=== PATIENT | male | born 1950 | race Caucasian/White ===

== ENCOUNTER 2016-05-25 06:20 | Inpatient (IN) | payer OTHER ==
[~2016-05-25] VITALS: Ht 177.8 cm; Wt 109.8 kg
[~2016-05-25 06:20] MED LIST: BACT2OIN EX; ENAL10TA7 PO; FISH1000 PO; GLUC750T22 PO; METF-324 OR; MULT-65 PO; NAPR500 PO; TAMS0.4C67 PO
[2016-05-25 07:00] VITALS: BP 142/75; PULSE 58; RESP 18; TEMP 97; O2SAT 97
[2016-05-25] MEDS ORDERED: NITR0.4S SL (07:12)
[2016-05-25] MEDS ORDERED: TAMS0.4C4 PO (07:12)
[2016-05-25] MEDS ORDERED: IPRA17I INH (07:12)
[2016-05-25] MEDS ORDERED: GLUC100017 PO (07:12)
[2016-05-25] MEDS ORDERED: METO50TA PO (07:12)
[2016-05-25] MEDS ORDERED: LORA10TA PO (07:12)
[2016-05-25] MEDS ORDERED: GLIM1TAB PO (07:12)
[2016-05-25] MEDS ORDERED: NAPR500T PO (07:12)
[2016-05-25] MEDS ORDERED: MULT-135 PO (07:12)
[2016-05-25] MEDS ORDERED: ENAL10TA PO (07:12)
[2016-05-25] MEDS ORDERED: METF1000 PO (07:12)
[2016-05-25] MEDS ORDERED: OMEGCAP PO (07:12)
[2016-05-25] MEDS ORDERED: HEPARIN-NS/PF INJ 500 ML ONE (08:12)
[2016-05-25] MEDS ORDERED: MIDAZOLAM HCL 2 MG/2 ML VIAL ONE (08:13)
[2016-05-25] MEDS ORDERED: SODIUM CHLOR 0.9% 1000 ML INJ 1,000 ML IV SCH (08:46)
[2016-05-25] MEDS ORDERED: BACITRACIN OINT 0.9 GM PKT TOP ONE (09:00)
[2016-05-25] MEDS ORDERED: SODIUM CHLOR 0.9% 250 ML INJ 250 ML IV PRN (09:00)
[2016-05-25] MEDS ORDERED: LORazepam 2 MG/ML VIAL IV PRN (09:00)
[2016-05-25] MEDS ORDERED: LIDOCAINE HCL 1% 50 ML VIAL INFIL PRN (09:00)
[2016-05-25] MEDS ORDERED: METOCLOPRAMIDE HCL 10 MG/2 ML VIAL IV PRN (09:00)
[2016-05-25] MEDS ORDERED: SODIUM CHLORIDE 0.9% FLUSH 5 ML FLUSH IVF SCH (09:00)
[2016-05-25] MEDS ORDERED: MISC INFORMATION XX ONE (09:00)
[2016-05-25] MEDS ORDERED: ONDANSETRON HCL 4 MG/2 ML VIAL IV PRN (09:00)
[2016-05-25] MEDS ORDERED: SODIUM CHLORIDE 0.9% FLUSH 5 ML FLUSH IVF PRN (09:00)
[2016-05-25] MEDS ORDERED: ATROPINE SULFATE 1 MG/ML VIAL IV PRN (09:00)
[2016-05-25] MEDS: SODIUM CHLOR 0.9% 1000 ML INJ 1,000 ML IV SCH (10:28)
[2016-05-25] MEDS ORDERED: INSULIN REGULAR (IV INFUSION) 100 UNITS in SODIUM CHLORIDE 0.9% INJ 100 ML IV SCH (10:30)
[2016-05-25] MEDS ORDERED: IPRATROPIUM BROMIDE 17 MCG/ACT 12.9 GM INHALER INH PRN (10:30)
[2016-05-25] MEDS ORDERED: METOPROLOL TARTRATE 25 MG TAB PO SCH (10:30)
[2016-05-25] MEDS ORDERED: NALOXONE HCL 0.4 MG/ML AMP IV PRN (10:30)
[2016-05-25] MEDS ORDERED: ACETAMINOPHEN 325 MG TAB PO PRN (10:30)
[2016-05-25] MEDS ORDERED: ceFAZolin 2 GM PREMIX 50 ML IV SCH (10:30)
[2016-05-25] MEDS ORDERED: CHLORHEXIDINE GLUCONATE 4% SOLN 120 ML BTL TOPICAL SCH (10:30)
[2016-05-25] MEDS ORDERED: SODIUM CHLORIDE 0.9% FLUSH 5 ML FLUSH FLUSH PRN (10:30)
[2016-05-25] MEDS ORDERED: PANTOPRAZOLE SOD 40 MG DELAYED RELEASE TAB PO ONE (10:30)
[2016-05-25] MEDS ORDERED: CEFAZOLIN INJ 500 MG in SODIUM CHLORIDE 0.9% IRR BTL 500 ML IRRIGATION SCH (10:30)
[2016-05-25] MEDS ORDERED: PAPAVERINE INJ 60 MG, NITROGLYCERIN INJ 100 MCG, DILTIAZEM INJ 100 MG in SODIUM CHLORID... IRRIGATION SCH (10:30)
[2016-05-25] MEDS ORDERED: ONDANSETRON HCL 4 MG/2 ML VIAL IVP PRN (10:30)
[2016-05-25] MEDS ORDERED: SODIUM CHLORIDE 0.9% FLUSH 5 ML FLUSH IV FLUSH PRN (10:30)
[2016-05-25] MEDS ORDERED: IOHEXOL 350 MG/ML 100 ML BTL (for Cath Lab) OTHER ONE (10:35)
--- NOTE | 2016-05-25 11:28 | RADRPT ---
EXAM DATE/TIME: 05/25/2016 10:39 [facility] COMPARISON: No previous studies available for comparison. INDICATIONS : Evaluate for pneumothorax, pneumonia or communicable disease. Pre op for cabg tomorrow MEDICAL HISTORY : None. SURGICAL HISTORY : None. ENCOUNTER: Initial ACUITY: 1 day PAIN SCORE: 0/10 LOCATION: Bilateral chest FINDINGS: A single view of the chest demonstrates the lungs to be symmetrically aerated without evidence of mas s, infiltrate or effusion. The cardiomediastinal contours are unremarkable. Osseous structures are intact. CONCLUSION: No acute disease. Ryan Hayward MD FACR on May 25, 2016 at 11:26 Board Certified Radiologist. This report was verified electronically.
--- NOTE | 2016-05-25 11:32 | MA ---
cc: DWAINE ZARATE MD DATE 05/25/2016 PROCEDURE Cardiac catheterization. PROCEDURAL NOTE The patient was prepped and draped in the usual fashion. A 6 sheath was inserted percutaneously into the right femoral artery. Coronary angiography was done with Jeramie preformed catheters. Left ventriculography was done with a pigtail catheter. RESULTS Aortic pressure was 104/55. Left ventricular end-diastolic pressure was 10. There is no gradient across the aortic valve. CORONARY ARTERIOGRAPHY The left main coronary was normal. The left anterior descending artery demonstrated a 90% stenosis in its proximal portion. The artery was then somewhat diffusely diseased over a fairly long segment compromising 2-3 cm with a second 90% stenosis just after the takeoff of the first diagonal. The distal portion of the artery appeared to be somewhat diffusely diseased but patent. The left circumflex artery arose from the left main. A large obtuse marginal branch was given off with a 75% stenosis in the proximal portion, followed by a second 90% stenosis. The distal portion of the circumflex was widely patent. The left circumflex artery descended in the AV groove and was essentially normal. The right coronary was totally occluded in its midportion. Collateralization from both the LAD and circumflex provided a circulation to the distal right coronary. LEFT VENTRICULOGRAPHY The left ventricle was normal in size. There was mild anterior wall hypokinesis with overall estimated ejection fraction of 55%. No mitral regurgitation was present. Aortic outflow tract appeared normal. CONCLUSIONS The patient demonstrates rather significant three-vessel coronary disease as described above. He would be appear to be a candidate for bypass grafting to the distal circumflex, LAD and right coronary arteries. MD KASSIE Maher/JUAN JOSÉ /8:46 AM /11:25 AM
--- NOTE | 2016-05-25 12:30 | RADRPT ---
EXAM DATE/TIME: 05/25/2016 11:44 [facility] COMPARISON: No previous studies available for comparison. INDICATIONS : Pre-op CABG. MEDICAL HISTORY : Hypertension. Nephrolithiasis. Arthritis. Prostate cancer. SURGICAL HISTORY : Sinus surgery. Kidney stone removal. Rotator cuff repair. ENCOUNTER: Initial ACUITY: 1 day PAIN SCORE: 0/10 LOCATION: Bilateral neck PEAK SYSTOLIC VELOCITIES (cm/sec): ICA/CCA RATIO: Right: 1.5 Left: 0.6 ICA: Right: 89 Left: 66 CCA: Right: 61 Left: 116 ECA: Right: 111 Left: 114 VERTEBRAL: Right: 54 antegrade Left: 35 antegrade Elevated flow velocities and ICA/CCA ratios have been found to correlate with increased degrees of vessel stenosis, calculated as percentage of diameter relative to a normal segment of distal ICA/CCA FINDINGS: RIGHT CAROTID: No significant stenosis is visualized. The waveforms are within normal limits. Minimal calcific plaq uing nonstenotic right internal carotid and mild soft plaquing in the bulb LEFT CAROTID: No significant stenosis is visualized. The waveforms are within normal limits. Mild soft plaquing of the bulb VERTEBRAL ARTERIES: Antegrade flow is seen in both vertebral arteries. MISCELLANEOUS: None. CONCLUSION: Mild atherosclerotic plaquing as described. No evidence of anatomic or physiologic stenosis Jose Juan Whitfield MD on May 25, 2016 at 12:27 Board Certified Radiologist. This report was verified electronically.
--- NOTE | 2016-05-25 12:33 | RADRPT ---
EXAM DATE/TIME: 05/25/2016 11:10 [facility] COMPARISON: No previous studies available for comparison. INDICATIONS : Pre-op CABG. MEDICAL HISTORY : Hypertension. Nephrolithiasis. Arthritis. Prostate cancer. SURGICAL HISTORY : Sinus surgery. Kidney stone removal. Rotator cuff repair. ENCOUNTER: Initial ACUITY: 1 day PAIN SCORE: 0/10 LOCATION: Bilateral legs. TECHNIQUE: Venous ultrasound of the left and right leg was performed from the inguinal ligament to the proximal calf. Real-time, color Doppler and spectral tracing, compression and augmentation techniques were us ed. FINDINGS: RIGHT LEG: There is normal compressibility of the deep venous system from the inguinal region to the proximal ca lf. No echogenic clot is seen in the lumen of the common femoral, femoral, popliteal, and posterior tibial veins. There is a normal response of the venous system to proximal and distal augmentation an d respiration. Iliac vein patent LEFT LEG: There is normal compressibility of the deep venous system from the inguinal region to the proximal ca lf. No echogenic clot is seen in the lumen of the common femoral, femoral, popliteal, and posterior tibial veins. There is a normal response of the venous system to proximal and distal augmentation an d respiration. Iliac vein patent CONCLUSION: Normal examination. No evidence of DVT Jose Juan Whitfield MD on May 25, 2016 at 12:31 Board Certified Radiologist. This report was verified electronically.
[2016-05-25 13:54] LABS: BLOOD, URINE NEG (NEG); GLUCOSE,URINE NEG (NEG); KETONE, URINE NEG (NEG); MUCUS URINE FEW /lpf (OCC); NITRITE,URINE NEG (NEG); URINE COLOR LIGHT-YELLOW (YELLW/STRAW)
[2016-05-25 13:55] LABS: COMMENT (UR) CULT NOT INDICATED; CULTURE IF INDICATED CULT NOT INDICATED
--- NOTE | 2016-05-25 14:41 | MH ---
cc: DILCIA LOJA DATE OF ADMISSION: 05/25/2016 1950 HISTORY OF PRESENT ILLNESS A patient of Dr. Guillaume Diana and Dr. Samuel Michaels. Apparently has been complaining of exertional chest tightness for the last month, noticed also with some belching, some shortness of breath, no diaphoresis, no nausea, vomiting. He has had this going off and on for the past month. He had an abnormal stress test which showed evidence for ischemia. He underwent cardiac cath today by Dr. Guillaume Diana which showed an EF of 55%, 0% stenosis in the left main, the LAD had proximal LAD stenosis of 90%, the mid distal LAD 90%, the OM 90%, the RCA was 100% occluded. The patient's risk factors include age, hypertension, tobacco use. PAST MEDICAL HISTORY 1. Degenerative disk disease. 2. Diabetes mellitus on oral medications. 3. Chronic low back pain. 4. Obesity with a BMI of 33. 5. Osteoarthritis of the shoulder, the right hand. 6. History of a right bundle branch block. 7. Sleep apnea. PAST SURGICAL HISTORY 1. Right rotator cuff surgery. 2. Right shoulder arthroscopy. 3. History of sinus surgery. ALLERGIES NEOSPORIN. MEDICATIONS Home medications include: 1. Enalapril 10 p.o. daily. 2. Fish oil. 3. Glimepiride 1 mg p.o. daily. 4. Glucosamine. 5. Loratadine 10 mg p.r.n. for allergies. 6. Naproxen. 7. Flomax 0.4 b.i.d. 8. Atrovent inhaler q.6 hours p.r.n. for shortness of breath. 9. Metoprolol 50 b.i.d. 10. Metformin 1000 b.i.d. FAMILY HISTORY Diabetes, CVA. SOCIAL HISTORY The patient is . Rare alcohol. Smokes a pipe and/or cigar. REVIEW OF SYSTEMS GENERAL: No night sweats, fever, heat and cold intolerance. SKIN: No psoriasis, itching or hives. HEENT: No blurred vision, hearing loss. RESPIRATORY: Positive for shortness of breath. CARDIOVASCULAR: As above in the HPI. GASTROINTESTINAL: No diarrhea, vomiting. GENITOURINARY: No burning, frequency, urgency. FINANCIAL WELLNESS COACH: No history of TIA, CVA, seizure disorder. ENDOCRINOLOGY: Positive for diabetes. PHYSICAL EXAMINATION VITAL SIGNS: Blood pressure 140/70, heart rate of 58, afebrile. GENERAL: Patient is awake, alert, in no acute distress. HEENT: Head is normocephalic, atraumatic. Pupils equal and reactive. Oral mucosa pink, moist. NECK: Supple. No JVD. HEART: Heart sounds S1-S2, regular rate and rhythm. No rubs, murmurs, gallops. LUNGS: Clear to auscultation. No wheezes, rales or rhonchi. ABDOMEN: Abdomen is obese, soft, nontender. No masses or organomegaly. EXTREMITIES: No cyanosis, clubbing or edema. LABORATORY DATA Lab work shows hemoglobin of 12, hematocrit 37, white cell count 5.4, platelet count 223, INR 1.1. Creatinine of 1.3. IMPRESSION This is a 65-year-old male with multiple cardiac risk factors with recent angina and positive stress test, underwent heart catheterization showing multivessel disease. Plan is for coronary artery bypass grafting. Films have been reviewed by Dr. Dilcia Loja. Procedures, alternatives and risks have been discussed with the patient. Plan will be for surgery in the a.m. Will have the educator talk with the patient and the family. He is to hold his enalapril and his metformin. He is to be started on some antacid 50 overnight and surgery will include bypass grafting to the LAD, the OM, possibly the RCA. The patient is agreeable to proceed, will plan for the morning. Dictated by: LOKESH Gerardo-Sandi MD WIL Mujica/JAZ /1:53 PM /2:40 PM
--- NOTE | 2016-05-25 15:22 | RADRPT ---
EXAM DATE/TIME: 05/25/2016 11:18 [facility] COMPARISON: No previous studies available for comparison. INDICATIONS : Pre-op CABG. MEDICAL HISTORY : Hypertension. Nephrolithiasis. Arthritis. Prostate cancer. SURGICAL HISTORY : Sinus surgery. Kidney stone removal. Rotator cuff repair. ENCOUNTER: Initial ACUITY: 1 day PAIN SCORE: 0/10 LOCATION: Bilateral legs. GREATER SAPHENOUS VEIN THIGH: PROXIMAL: Right 3 mm Left 4 mm MID: Right 4 mm Left 2 mm DISTAL: Right 4 mm Left 3 mm CALF: PROXIMAL: Right 3 mm Left 2 mm MID: Right 1 mm Left 2 mm DISTAL: Right 2 mm Left Non-visualized FINDINGS: The venous system of the lower extremities are patent by color Doppler imaging. Measurements of the leg veins (in mm) are listed above. CONCLUSION: Venous mapping as described above Ryan Hayward MD FACR on May 25, 2016 at 15:19 Board Certified Radiologist. This report was verified electronically.
--- NOTE | 2016-05-25 16:03 | PD.CAR.PN ---
CVT Progress Note Subjective/Hospital Course: sts data discussed with pt RISK SCORES About the STS Risk Calculator Procedure: CAB Only Risk of Mortality: 0.834% Morbidity or Mortality: 11.476% Long Length of Stay: 3.76% Short Length of Stay: 53.613% Permanent Stroke: 0.807% Prolonged Ventilation: 7.215% DSW Infection: 0.576% Renal Failure: 4.153% Reoperation: 3.913% Objective: Vital Signs Date Time Temp Pulse Resp B/P Pulse Ox O2 Delivery O2 Flow Rate FiO2 05/25/16 08:54 97 Room Air 05/25/16 07:00 97.0 58 18 142/75 97 Labs: Laboratory Tests Test 05/25/16 13:40 Urine Color LIGHT-YELLOW (YELLW/STRAW) Urine Turbidity CLEAR (CLEAR) Urine pH 5.0 (5.0-8.5) Urine Specific [place] 1.024 (1.002-1.035) Urine Protein NEG mg/dL (NEG-TRACE) Urine Glucose (UA) NEG mg/dL (NEG) Urine Ketones NEG mg/dL (NEG) Urine Occult Blood NEG (NEG) Urine Nitrite NEG (NEG) Urine Bilirubin NEG (NEG) Urine Urobilinogen LESS THAN 2.0 MG/DL (LESS THAN 2.0) Urine Leukocyte Esterase NEG (NEG) Urine RBC LESS THAN 1 /hpf (0-3) Urine WBC LESS THAN 1 /hpf (0-5) Urine Mucus FEW /lpf (OCC) Microscopic Urinalysis Comment CULT NOT INDICATED Consuelo Marina May 25, 2016 16:03
[2016-05-25 16:22] LABS: AUTOMATED NEUTROPHIL # 4.5 TH/MM3 (1.8-7.7); BASOPHIL % 0.4 % (0.0-2.0); EOSINOPHIL # 0.3 TH/MM3 (0-0.4); EOSINOPHIL % 3.6 % (0.0-4.0); HEMATOCRIT 39.2 % (39.0-51.0); HEMO FLAGS DIFF FINAL; LYMPH % 28.8 % (9.0-44.0); LYMPHOCYTE # 2.1 TH/MM3 (1.0-4.8); MEAN CELL VOLUME 91.1 FL (80.0-100.0); MEAN CORPUSCULAR HEMOGLOBIN 31.5 PG (27.0-34.0); MEAN CORPUSCULAR HGB CONC 34.6 % (32.0-36.0); MONO % 5.7 % (0.0-8.0); NEUT % 61.5 % (16.0-70.0); PLATELET COUNT 217 TH/MM3 (150-450); RED CELL DISTRIBUTION WIDTH 13.2 % (11.6-17.2); WHITE BLOOD COUNT 7.3 TH/MM3 (4.0-11.0)
[2016-05-25 16:27] LABS: PROTHROMBIN TIME - PATIENT 11.6 SEC (9.8-11.6)
[2016-05-25 16:42] LABS: ANION GAP 9 MEQ/L (5-15); BICARBONATE 26.9 MEQ/L (21.0-32.0); BLOOD UREA NITROGEN 17 MG/DL (7-18); CHLORIDE 105 MEQ/L (98-107); GLOMERULAR FILTRATION RATE 53 ML/MIN (>89); POTASSIUM 4.1 MEQ/L (3.5-5.1); SODIUM (NA) 141 MEQ/L (136-145)
--- NOTE | 2016-05-25 17:02 | EKG ---
Date Performed: 05/25/2016 Time Performed: 07:16:06 PTAGE: 65 years EKG: Sinus bradycardia Compared to prior tracing no significant change Normal ECG except for rat e PREVIOUS TRACING : 11/13/2005 08.12 DOCTOR: Luis Rod Interpretating Date/Time 05/25/2016 17:00:17
[2016-05-25 19:00] VITALS: PULSE 72
[2016-05-25 20:00] VITALS: BP 142/72; PULSE 71; PULSE 75; RESP 18; TEMP 98.4; O2SAT 96
[2016-05-25 21:00] VITALS: PULSE 73
[2016-05-25] MEDS ORDERED: SODIUM CHLORIDE 0.9% FLUSH 5 ML FLUSH IV FLUSH SCH (21:00)
[2016-05-25] MEDS ORDERED: SODIUM CHLORIDE 0.9% FLUSH 5 ML FLUSH FLUSH SCH (21:00)
[2016-05-25] MEDS: TAMSULOSIN HCL 0.4 MG CAP PO SCH (21:22)
[2016-05-25] MEDS: METOPROLOL TARTRATE 50 MG TAB PO SCH (21:22)
[2016-05-25] MEDS: DOCUSATE SODIUM 100 MG CAP PO SCH (21:23)
[2016-05-25 22:00] VITALS: PULSE 70
[2016-05-25 22:19] LABS: HEMOGLOBIN A1a 1.1 %; HEMOGLOBIN Ao 84.2 %; HEMOGLOBIN LA1C 2.1 %; HEMOGLOBIN P3 5.4 %
[2016-05-25 23:00] VITALS: PULSE 53
[2016-05-26] VITALS (19 sets, daily range): BP systolic 98–145; BP diastolic 54–75; PULSE 52–78; RESP 17–20; TEMP 88.4–98.6; O2SAT 94–98
[2016-05-26] MEDS ORDERED: MAGNESIUM SULFATE 1000 MG/2 ML VIAL (PED) IV ONE (05:00)
[2016-05-26] MEDS ORDERED: PHENYLEPHRINE HCL 10 MG/ML VIAL IV ONE (05:00)
[2016-05-26] MEDS ORDERED: ceFAZolin 2 GM PREMIX 50 ML IV ONE (05:00)
[2016-05-26] MEDS ORDERED: ARTIFICIAL TEARS OPTH OINT 3.5 APPLIC/3.5 GM TUBO ONE (05:00)
[2016-05-26] MEDS ORDERED: PROTAMINE SULFATE 250 MG/25 ML VIAL IV ONE ×2 (05:00→12:28)
[2016-05-26] MEDS ORDERED: FUROSEMIDE 100 MG/10 ML VIAL IV PUSH ONE (05:00)
[2016-05-26] MEDS ORDERED: HEPARIN SODIUM - SQ 10,000 UNITS/ML VIAL SQ ONE (05:00)
[2016-05-26] MEDS ORDERED: EPINEPHrine HCL (1:1000) 1 MG/ML VIAL IV ONE (05:00)
[2016-05-26] MEDS ORDERED: VECURONIUM BROMIDE 10 MG VIAL IV ONE (05:00)
[2016-05-26] MEDS ORDERED: DEXMEDETOMIDINE INJ 50 ML IV ONE (05:00)
[2016-05-26] MEDS ORDERED: AMIODARONE HCL 150 MG/3 ML VIAL IV ONE (05:00)
[2016-05-26] MEDS ORDERED: CALCIUM CHLORIDE 10% SOLN 1 GRAM/10 ML SYR IV ONE (05:00)
[2016-05-26] MEDS ORDERED: diphenhydrAMINE HCL 50 MG/ML VIAL IV ONE (05:00)
[2016-05-26] MEDS ORDERED: VASOPRESSIN INJ 20 UNITS/ML VIAL IV ONE (05:00)
[2016-05-26] MEDS ORDERED: NOREPINEPHRINE 4 MG/4 ML AMP IV ONE (05:00)
[2016-05-26] MEDS ORDERED: EPINEPHrine HCL (1:1000) 30 MG/30 ML VIAL OTHER ONE (05:00)
[2016-05-26] MEDS ORDERED: GLYCOPYRROLATE 0.2 MG/ML VIAL IV ONE (05:00)
[2016-05-26] MEDS: METOPROLOL TARTRATE 50 MG TAB PO SCH (05:59)
[2016-05-26] MEDS ORDERED: VANCOMYCIN HCL 1000 MG VIAL ONE (06:23)
[2016-05-26] MEDS ORDERED: methylPREDNISolone SOD SUCC 125 MG/2 ML VIAL ONE (06:24)
[2016-05-26] MEDS ORDERED: HEPARIN SODIUM - SQ 10,000 UNITS/ML VIAL ONE (06:24)
[2016-05-26] MEDS ORDERED: HEPARIN SODIUM - IV 10,000 UNITS/10 ML VIAL ONE ×2 (06:24→07:08)
[2016-05-26] MEDS: SODIUM CHLOR 0.9% 1000 ML INJ 1,000 ML IV SCH (06:28)
[2016-05-26] MEDS ORDERED: ALBUMIN HUMAN 25% 12.5 GM/50 ML BAGP IV ONE (07:06)
[2016-05-26] MEDS ORDERED: CARDIOPLEGIC IRR 1,000 ML ONE (07:06)
[2016-05-26] MEDS ORDERED: POTASSIUM CHLORIDE 20 MEQ/10 ML VIAL ONE ×2 (07:07→11:05)
[2016-05-26] MEDS ORDERED: CALCIUM CHLORIDE 10% SOLN 1 GRAM/10 ML SYR ONE (07:07)
[2016-05-26] MEDS ORDERED: MANNITOL INJ 50 ML ONE (07:09)
[2016-05-26] MEDS ORDERED: SODIUM BICARBONATE 8.4% INJ 50 ML ONE ×2 (07:09→12:04)
[2016-05-26] MEDS: TAMSULOSIN HCL 0.4 MG CAP PO SCH ×2 (09:00→20:31)
[2016-05-26] MEDS ORDERED: INFLUENZA VIRUS VACCINE (QUADRIVALENT) 0.5 ML SYR IM ONE (10:00)
[2016-05-26] MEDS: DOCUSATE SODIUM 100 MG CAP PO SCH ×2 (10:30→22:30)
[2016-05-26] MEDS ORDERED: LACTATED RINGER'S 1000 ML INJ 500 ML IV PRN (11:07)
[2016-05-26] MEDS ORDERED: Post-op Orders (for Pharmacy) MISC OTHER ONE (11:15)
[2016-05-26] MEDS ORDERED: ACETAMINOPHEN 325 MG TAB PO PRN (11:15)
[2016-05-26] MEDS ORDERED: SODIUM CHLORIDE 0.9% FLUSH 5 ML FLUSH IV FLUSH PRN (11:15)
[2016-05-26] MEDS ORDERED: DEXTROSE 50% IN WATER 50 ML VIAL(D50) IV PUSH PRN (11:15)
[2016-05-26] MEDS ORDERED: ONDANSETRON HCL 4 MG/2 ML VIAL IV PUSH PRN (11:15)
[2016-05-26] MEDS ORDERED: EPINEPHrine (1:1000) INJ 4 MG in DEXTROSE 5% IN WATER INJ 246 ML IV SCH ×2 (11:15)
[2016-05-26] MEDS ORDERED: CALCIUM CHLORIDE 10% 1 GRAM/10 ML VIAL IV PRN (11:15)
[2016-05-26] MEDS ORDERED: POTASSIUM CHLOR 20 MEQ PREMIX 100 ML IV PRN ×3 (11:15)
[2016-05-26] MEDS ORDERED: hydrALAZINE HCL 20 MG/ML VIAL IV PRN (11:15)
[2016-05-26] MEDS ORDERED: MAGNESIUM SULFATE INJ 2 GM in SODIUM CHLORIDE 0.9% INJ 100 ML IV PRN ×4 (11:15)
[2016-05-26] MEDS ORDERED: NOREPINEPHRINE-DEXTROSE DRIP 250 ML IV SCH (11:15)
[2016-05-26] MEDS ORDERED: CALCIUM CHLORIDE INJ 1 GM in SODIUM CHLORIDE 0.9% INJ 100 ML IV PRN (11:15)
[2016-05-26] MEDS ORDERED: ACETAMINOPHEN 650 MG SUPP RECTAL PRN (11:15)
[2016-05-26] MEDS ORDERED: POTASSIUM CHLORIDE 20 MEQ CONTROLLED RELEASE TAB PO PRN ×2 (11:15)
--- NOTE | 2016-05-26 11:22 | PD.OP ---
cc: Dilcia Loja MD; Guillaume Diana MD, [facility] Operative Report Date of Surgery: May 26, 2016 Preoperative Diagnosis: (1) Unstable angina (2) CAD (coronary artery disease) Postoperative Diagnosis: same Procedure: CABG x 3 MCKENZIE to LAD - good SVG to PDA - fair SVG to OM - good EVH Anesthesia: Dr. Denson Surgeon: Dilcia Loja Process Artist(s): Ron Pena Operation and Findings: The risks, benefits, complications, treatment options, and expected outcomes were discussed with the patient. The possibilities of reaction to medication, pulmonary aspiration, perforation of viscus, bleeding, recurrent infection, the need for additional procedures, failure to diagnose a condition, and creating a complication requiring transfusion or operation were discussed with the patient. The patient concurred with the proposed plan, giving informed consent. The site of surgery properly noted/marked. The patient was taken to Operating Room, identified as True Kauff[facility] and the procedure verified as CABG, EVH, PACO. A Time Out was held and the above information confirmed. Standard monitoring lines and Ibarra catheter were placed. General anesthesia was induced. The patient was prepped and draped in a sterile fashion. A median sternotomy was performed and electrocautery was used to obtain hemostasis. The left internal mammary artery was procured as a pedicle from the 7th rib to the 1st rib in the usual manner. Simultaneously left greater saphenous vein was procured from the left leg using a minimally invasive endoscopic technique. The vein was prepared for anastomosis and the leg wound was irrigated and closed in 2 layers. The pericardium was opened and a pericardial sling was created using interrupted 0 silk sutures. The patient was heparinized for cardiopulmonary bypass and the distal mammary pedicle was instrumented for anastomosis. The heart was instrumented for cardiopulmonary bypass in the usual manner. Antegrade blood cardioplegia was employed. The patient was placed on cardiopulmonary bypass. An aortic cross-clamp was applied and the heart was arrested using cold blood cardioplegia. Antegrade cardioplegia was administered after he each anastomosis. After adequate arrest, the distal right coronary circulation was investigated and the PDA was opened with a [place] blade and found to be a 1 millimeter fair target with diffuse disease. Saphenous vein was approximated to the PDA artery using a running 7 0 Prolene suture. The graft was measured for length and orientation and the proximal anastomosis was constructed to the ascending aorta using a running 5 0 Prolene suture after creating an aortotomy with a 5 millimeter punch. The 1st circumflex marginal artery was then opened with a [place] blade and found to be a 1.5 millimeter good target. Saphenous vein was approximated to the OM1 artery using a running 7 0 Prolene suture. The graft was measured for length and orientation and was suspended from the pericardium. The distal LAD was opened with a [place] blade and found to be a 1.5 millimeter good target. The left internal mammary artery was approximated to the LAD using a running 7 0 Prolene suture. The pedicle was attached to the epicardium using interrupted 5 0 silk suture. The patient was systemically rewarmed and received a hotshot dose of warm blood cardioplegia. The aorta was vented and the proximal anastomosis to the OM1 graft was accomplished using a running 5 0 Prolene suture after creating an aortotomy was a 5 millimeter punch. The cross -clamp was removed and all proximal and distal anastomoses were examined for hemostasis. Temporary atrial and ventricular pacing wires were positioned and brought out through the skin in the usual manner. The patient was paced at 80 beats per minute and weaned from cardiopulmonary bypass. Protamine was given. There was no adverse reaction. Decannulation was carried out without incident. Wound was checked for hemostasis which was obtained using electrocautery. A 36 [place] mediastinal and 32 [place] left pleural chest was were placed and secured to the skin with 0 silk suture. The sternum was closed with stainless steel wire. The fascia was closed with 1. PDS. The subcutaneous tissue was closed using a running 2-0 Vicryl suture. The skin was closed with 4-0 Monocryl. Sterile dressings were placed. At the end of the operation, all sponge, instruments, and needle counts were correct. The patient was transferred to the CICU in stable condition. Findings: Diffuse CAD in PDA. Improved ventricular function after revascularization. XC: 49 min CPB: 72 min Drains: mediastinal x 1 pleural x 1 Complications: none Disposition: to CVICU in stable condition Condition: stable Pacing Wires: 2 atrial and 2 ventricular Dilcia Loja MD May 26, 2016 11:22
[2016-05-26] MEDS: ACETAMINOPHEN 1000 MG/100 ML VIAL IV SCH ×2 (12:00→17:56)
[2016-05-26] MEDS ORDERED: MIDAZOLAM HCL 5 MG/5 ML VIAL ONE (12:05)
[2016-05-26] MEDS ORDERED: fentaNYL CITRATE 1000 MCG/20 ML VIAL ONE (12:06)
[2016-05-26] MEDS ORDERED: SODIUM CHLOR 0.9% IV ONE (12:28)
[2016-05-26] MEDS ORDERED: NORMOSOL R INJ 2,000 ML IV ONE (12:28)
[2016-05-26] MEDS ORDERED: SODIUM CHLORID 0.9% 500 ML INJ 1,000 ML IV ONE (12:28)
[2016-05-26] MEDS ORDERED: LACTATED RINGER'S 1000 ML INJ 3,000 ML IV ONE (12:28)
[2016-05-26] MEDS ORDERED: SODIUM CHLORIDE 0.9% INJ 200 ML IV ONE (12:28)
[2016-05-26] MEDS ORDERED: SODIUM BICARBONATE 8.4% SOLN 50 MEQ/50 ML VIAL IV ONE (13:00)
[2016-05-26] MEDS ORDERED: INSULIN REGULAR (IV INFUSION) 100 UNITS in SODIUM CHLORIDE 0.9% INJ 99 ML IV SCH (13:00)
--- NOTE | 2016-05-26 13:35 | RADRPT ---
EXAM DATE/TIME: 05/26/2016 12:31 [facility] COMPARISON: CHEST SINGLE AP, May 25, 2016, 10:39. INDICATIONS : Post CABG. MEDICAL HISTORY : Hypertension. Nephrolithiasis. Arthritis. Prostate cancer. SURGICAL HISTORY : CABG. Sinus surgery. Kidney stone removal. Rotator cuff repair. ENCOUNTER: Initial ACUITY: 1 day PAIN SCORE: Non-responsive. LOCATION: chest FINDINGS: Relative to prior examination there has been an interim median sternotomy cardiac surgery with an ET tube terminating above the placido and nasogastric tube to the midline of the stomach as well as a rig ht uterine catheter terminating in the superior vena cava at the right atrial junction. Left chest tu be is in place and there is no evidence of pneumothorax the lung pires are clear. CONCLUSION: Satisfactory post median sternotomy and cardiac surgery. Jose Juan Whitfield MD on May 26, 2016 at 13:33 Board Certified Radiologist. This report was verified electronically.
[2016-05-26] MEDS: AMIODARONE 200 MG TAB PO SCH ×2 (14:00→20:32)
[2016-05-26] MEDS: ceFAZolin 2 GM PREMIX 50 ML IV SCH (15:24)
[2016-05-26] MEDS: ATORVASTATIN 40 MG TAB PO SCH (20:31)
[2016-05-26] MEDS: SODIUM CHLORIDE 0.9% FLUSH 5 ML FLUSH IV FLUSH SCH (20:32)
[2016-05-26] MEDS: METOPROLOL TARTRATE 5 MG/5 ML VIAL IV PUSH PRN (20:32)
[2016-05-27] VITALS (16 sets, daily range): BP systolic 108–135; BP diastolic 55–74; PULSE 65–81; RESP 16–20; TEMP 98–98.9; O2SAT 92–98
[2016-05-27] MEDS: ceFAZolin 2 GM PREMIX 50 ML IV SCH ×3 (01:13→16:34)
[2016-05-27] MEDS: ACETAMINOPHEN 1000 MG/100 ML VIAL IV SCH ×2 (01:13→05:50)
[2016-05-27] MEDS: METOPROLOL TARTRATE 5 MG/5 ML VIAL IV PUSH PRN (01:26)
[2016-05-27] MEDS: SODIUM CHLOR 0.9% 1000 ML INJ 1,000 ML IV SCH ×2 (02:28→22:28)
--- NOTE | 2016-05-27 05:24 | RADRPT ---
EXAM DATE/TIME: 05/27/2016 04:24 [facility] COMPARISON: CHEST SINGLE AP, May 26, 2016, 12:31. INDICATIONS : Status post CABG. MEDICAL HISTORY : Hypertension. Arthritis. Carcinoma, prostatic. Nephrolithiasis SURGICAL HISTORY : CABG. Sinus surgery, Lithotripsy, Rotator cuff repair ENCOUNTER: Subsequent ACUITY: 3 days PAIN SCORE: Non-responsive. LOCATION: Bilateral chest FINDINGS: The endotracheal tube and NG tube have been removed. The left chest tube remains in place. A right ce ntral line remains in place. There are scattered areas of atelectasis. Otherwise the lungs are clear. No pleural effusions. Heart size is stable. CONCLUSION: Scattered areas of atelectasis. Freeman Hi MD on May 27, 2016 at 5:21 Board Certified Radiologist. This report was verified electronically.
[2016-05-27 05:25] LABS: HEMATOCRIT 30.5 % (39.0-51.0); MEAN CELL VOLUME 91.2 FL (80.0-100.0); MEAN CORPUSCULAR HEMOGLOBIN 31.3 PG (27.0-34.0); MEAN CORPUSCULAR HGB CONC 34.3 % (32.0-36.0); PLATELET COUNT 151 TH/MM3 (150-450); RED BLOOD COUNT 3.34 MIL/MM3 (4.50-5.90); RED CELL DISTRIBUTION WIDTH 13.5 % (11.6-17.2); REVIEW FLAG FINAL; WHITE BLOOD COUNT 18.2 TH/MM3 (4.0-11.0)
[2016-05-27 05:47] LABS: BICARBONATE 30.4 MEQ/L (21.0-32.0); POTASSIUM 4.3 MEQ/L (3.5-5.1)
[2016-05-27] MEDS: AMIODARONE 200 MG TAB PO SCH ×3 (05:50→21:28)
[2016-05-27] MEDS: PANTOPRAZOLE SOD 40 MG DELAYED RELEASE TAB PO SCH (05:50)
--- NOTE | 2016-05-27 08:08 | EKG ---
Date Performed: 05/27/2016 Time Performed: 04:56:28 PTAGE: 65 years EKG: Sinus rhythm Low QRS voltages in precordial leads Borderline ECG COMPARED TO PRIOR ELECTROCARDIOGRAM, Rate has in creased. PREVIOUS TRACING : 05/25/2016 07.16 DOCTOR: Quincy Segal Interpretating Date/Time 05/27/2016 08:08:13
[2016-05-27] MEDS: SODIUM CHLORIDE 0.9% FLUSH 5 ML FLUSH IV FLUSH SCH (09:00)
[2016-05-27] MEDS ORDERED: INSULIN DETEMIR 100 UNITS/ML VIAL SQ ONE (09:45)
[2016-05-27] MEDS ORDERED: SOD PHOSPHATE/SOD BIPHOSPHATE (ADULT) ENEMA 133ML RECTAL PRN (09:45)
[2016-05-27] MEDS ORDERED: BISACODYL 10 MG SUPP RECTAL PRN (09:45)
[2016-05-27] MEDS ORDERED: DEXTROSE 50% IN WATER 50 ML VIAL(D50) IV PRN (09:45)
[2016-05-27] MEDS ORDERED: GLUCAGON 1 MG/ML VIAL OTHER PRN (09:45)
[2016-05-27] MEDS: METOPROLOL TARTRATE 25 MG TAB PO SCH ×2 (09:45→21:28)
[2016-05-27] MEDS: INSULIN ASPART SUPPLEMENTAL SCALE SQ SCH ×4 (10:00→21:29)
[2016-05-27] MEDS: oxyCODONE/ACETAMINOPHEN 5 MG/325 MG TAB PO PRN ×3 (10:08→21:27)
[2016-05-27] MEDS: TAMSULOSIN HCL 0.4 MG CAP PO SCH ×2 (10:18→21:28)
[2016-05-27] MEDS: ASPIRIN 81 MG CHEW TAB PO SCH (10:18)
--- NOTE | 2016-05-27 11:36 | PD.CAR.PN ---
CVT Progress Note CVT: POD #: 1 Subjective/Hospital Course: 65/ male recent chest pain, underwent outpt workup abnormal stress test / underwent cardiac cath per Dr Theodore Diana / multivessel disease / EF 55 % PMH: DDD, DM , chronic back pain , [place], obesity BMI33 surgery: 05/26 CABG x 3, MCKENZIE to LAD - good, SVG to PDA - fair, SVG to OM - good , EVH CPB 72 min, crystalloid 3000cc/ 500 cellsaver, 300 urine , + solumedrol extubated post surgery 05/27 up in chair, on nasal cannula weaning off insulin gtt, levemir started diabetic diet , leave chest tubes in start BB, on ASA, statin , amiodarone Objective: GENERAL: SKIN: Warm and dry./ prevena to chest , noah wrap to leg HEAD: Normocephalic. EYES: No scleral icterus. No injection or drainage. NECK: Supple, trachea midline. No JVD or lymphadenopathy. CARDIOVASCULAR: Regular rate and rhythm without murmurs, gallops, + rubs. RESPIRATORY: Breath sounds equal bilaterally. No accessory muscle use. diminished in bases, CXR noted , chest tube drained 220cc/ 12 hrs no air leak GASTROINTESTINAL: Abdomen soft, non-tender, nondistended. MUSCULOSKELETAL: No cyanosis, or edema. BACK: Nontender without obvious deformity. No CVA tenderness. Vital Signs Date Time Temp Pulse Resp B/P Pulse Ox O2 Delivery O2 Flow Rate FiO2 05/27/16 11:00 98.6 80 18 131/74 97 05/27/16 11:00 97 Nasal Cannula 05/27/16 11:00 71 05/27/16 08:43 98 Nasal Cannula 2.00 05/27/16 07:00 80 05/27/16 07:00 95 Nasal Cannula 05/27/16 07:00 98.9 80 18 108/57 95 122/56 05/27/16 03:41 74 05/27/16 03:41 98.0 74 16 135/55 95 127/60 05/27/16 03:41 96 Nasal Cannula 05/27/16 03:41 75 05/26/16 23:41 74 05/26/16 23:41 78 05/26/16 23:41 98.2 77 17 140/68 95 145/68 05/26/16 23:41 96 Nasal Cannula 05/26/16 20:00 95 21 05/26/16 19:45 98.0 74 17 141/60 95 125/64 05/26/16 19:45 95 Room Air 05/26/16 19:45 74 05/26/16 19:00 74 05/26/16 16:00 99 Nasal Cannula 2.00 05/26/16 15:00 76 05/26/16 15:00 98.6 69 20 125/75 96 05/26/16 15:00 13 05/26/16 14:20 72 05/26/16 13:49 98.6 71 20 98/54 96 05/26/16 13:29 94 Nasal Cannula 4 05/26/16 13:26 94 Nasal Cannula 4.00 05/26/16 13:00 60 05/26/16 13:00 97.5 05/26/16 12:00 98.4 05/26/16 12:00 98 40 05/26/16 12:00 40 Labs: Laboratory Tests Test 05/27/16 04:44 White Blood Count 18.2 TH/MM3 (4.0-11.0) Red Blood Count 3.34 MIL/MM3 (4.50-5.90) Hemoglobin 10.4 GM/DL (13.0-17.0) Hematocrit 30.5 % (39.0-51.0) Mean Corpuscular Volume 91.2 FL (80.0-100.0) Mean Corpuscular Hemoglobin 31.3 PG (27.0-34.0) Mean Corpuscular Hemoglobin 34.3 % Concent (32.0-36.0) Red Cell Distribution Width 13.5 % (11.6-17.2) Platelet Count 151 TH/MM3 (150-450) Mean Platelet Volume 8.9 FL (7.0-11.0) Sodium Level 142 MEQ/L (136-145) Potassium Level 4.3 MEQ/L (3.5-5.1) Chloride Level 103 MEQ/L (98-107) Carbon Dioxide Level 30.4 MEQ/L (21.0-32.0) Anion Gap 9 MEQ/L (5-15) Blood Urea Nitrogen 19 MG/DL (7-18) Creatinine 1.38 MG/DL (0.60-1.30) Estimat Glomerular Filtration 52 ML/MIN (>89) Rate Random Glucose 116 MG/DL (74-106) Calcium Level 8.4 MG/DL (8.5-10.1) Magnesium Level 2.0 MG/DL (1.5-2.5) Result Diagram: 05/27/1644305/27/16443 Cardiovascular: NSR (1) S/P CABG x 3 Plan: ASA, statin BB aggressive pulm toileting nebs, ezpap , wean [address] in ambulate (2) CAD (coronary artery disease) (3) Unstable angina (4) Diabetes mellitus Plan: wean of insulin gtt, on levemir, start home meds in am (5) Hyperlipemia Plan: on statin (6) Hypertension (7) Chronic kidney disease Plan: on BB Consuelo Marina May 27, 2016 11:36
[2016-05-27] MEDS: DOCUSATE SODIUM 100 MG CAP PO SCH ×2 (12:34→21:29)
[2016-05-27] MEDS: RESP: ALBUTEROL 2.5 MG/IPRATROPIUM 0.5 MG NEB (SCH) NEB ×2 (12:59→20:47)
[2016-05-27] MEDS: SENNOSIDES 8.6 MG TAB PO SCH (21:27)
[2016-05-27] MEDS: ATORVASTATIN 40 MG TAB PO SCH (21:28)
[2016-05-27] MEDS: INSULIN DETEMIR 100 UNITS/ML VIAL SQ SCH (21:29)
[2016-05-28] VITALS (27 sets, daily range): BP systolic 119–152; BP diastolic 58–71; PULSE 65–84; RESP 18–19; TEMP 98.1–100.3; O2SAT 92–95
[2016-05-28] MEDS: ceFAZolin 2 GM PREMIX 50 ML IV SCH (00:30)
[2016-05-28] MEDS: SODIUM CHLORIDE 0.9% FLUSH 5 ML FLUSH IV FLUSH SCH ×3 (00:30→21:43)
[2016-05-28] MEDS: INSULIN ASPART SUPPLEMENTAL SCALE SQ SCH ×5 (02:00→21:44)
[2016-05-28 04:20] LABS: AUTOMATED NEUTROPHIL # 12.4 TH/MM3 (1.8-7.7); BASOPHIL % 0.2 % (0.0-2.0); EOSINOPHIL # 0.1 TH/MM3 (0-0.4); EOSINOPHIL % 0.8 % (0.0-4.0); HEMATOCRIT 30.7 % (39.0-51.0); HEMO FLAGS DIFF FINAL; LYMPHOCYTE # 1.9 TH/MM3 (1.0-4.8); MEAN CORPUSCULAR HEMOGLOBIN 31.5 PG (27.0-34.0); MEAN CORPUSCULAR HGB CONC 33.9 % (32.0-36.0); MONO % 7.2 % (0.0-8.0); NEUT % 79.8 % (16.0-70.0); PLATELET COUNT 158 TH/MM3 (150-450); RED CELL DISTRIBUTION WIDTH 13.3 % (11.6-17.2); WHITE BLOOD COUNT 15.6 TH/MM3 (4.0-11.0)
[2016-05-28 04:44] LABS: BICARBONATE 31.6 MEQ/L (21.0-32.0); MAGNESIUM 2.2 MG/DL (1.5-2.5); POTASSIUM 4.1 MEQ/L (3.5-5.1)
[2016-05-28] MEDS: AMIODARONE 200 MG TAB PO SCH ×3 (06:09→21:45)
[2016-05-28] MEDS: PANTOPRAZOLE SOD 40 MG DELAYED RELEASE TAB PO SCH (06:09)
[2016-05-28] MEDS: oxyCODONE/ACETAMINOPHEN 5 MG/325 MG TAB PO PRN ×3 (06:12→21:57)
[2016-05-28] MEDS: RESP: ALBUTEROL 2.5 MG/IPRATROPIUM 0.5 MG NEB (SCH) NEB ×3 (07:48→20:17)
[2016-05-28] MEDS: MAGNESIUM HYDROXIDE SUSP 30 ML CUP PO SCH (08:19)
[2016-05-28] MEDS: METOPROLOL TARTRATE 25 MG TAB PO SCH ×2 (08:19→21:43)
[2016-05-28] MEDS: MULTIVITAMINS/MINERALS THERAPEUTIC TAB PO SCH (08:19)
[2016-05-28] MEDS: INSULIN DETEMIR 100 UNITS/ML VIAL SQ SCH ×2 (08:19→21:44)
[2016-05-28] MEDS: POLYETHYLENE GLYCOL 17 GM PKG PO SCH (08:19)
[2016-05-28] MEDS: ASPIRIN 81 MG CHEW TAB PO SCH (08:19)
[2016-05-28] MEDS: TAMSULOSIN HCL 0.4 MG CAP PO SCH ×2 (08:19→21:43)
[2016-05-28] MEDS ORDERED: metFORMIN HCL 500 MG TAB PO SCH (09:30)
[2016-05-28] MEDS: GLIMEPIRIDE 1 MG TAB PO SCH (10:16)
[2016-05-28] MEDS: DOCUSATE SODIUM 100 MG CAP PO SCH ×2 (10:26→21:45)
--- NOTE | 2016-05-28 11:06 | PD.CAR.PN ---
CVT Progress Note CVT: POD #: 2 Subjective/Hospital Course: 65/ male recent chest pain, underwent outpt workup abnormal stress test / underwent cardiac cath per Dr Theodore Diana / multivessel disease / EF 55 % PMH: DDD, DM , chronic back pain , LORETAT, obesity BMI33, asthma surgery: 05/26 CABG x 3, MCKENZIE to LAD - good, SVG to PDA - fair, SVG to OM - good , EVH CPB 72 min, crystalloid 3000cc/ 500 cellsaver, 300 urine , + solumedrol extubated post surgery 05/27 up in chair, on nasal cannula weaning off insulin gtt, levemir started diabetic diet , leave chest tubes in start BB, on ASA, statin , amiodarone 05/28 hold on resuming metformin with GFR 44 no diuresis , check BMP in am eval for chest tube removal later this am will add advair , continue nebs pain control Objective: GENERAL: SKIN: Warm and dry./ prevena to chest , incision intact to leg HEAD: Normocephalic. EYES: No scleral icterus. No injection or drainage. NECK: Supple, trachea midline. No JVD or lymphadenopathy. CARDIOVASCULAR: Regular rate and rhythm without murmurs, gallops, or rubs. RESPIRATORY: Breath sounds equal bilaterally. No accessory muscle use. faint exp wheeze GASTROINTESTINAL: Abdomen soft, non-tender, nondistended. MUSCULOSKELETAL: No cyanosis, or edema. BACK: Nontender without obvious deformity. No CVA tenderness. Vital Signs Date Time Temp Pulse Resp B/P Pulse Ox O2 Delivery O2 Flow Rate FiO2 05/28/16 07:12 18 05/28/16 06:00 70 05/28/16 05:00 75 05/28/16 04:00 79 05/28/16 03:00 98.1 78 19 125/58 92 05/28/16 03:00 73 05/28/16 03:00 92 Room Air 05/28/16 02:00 71 05/28/16 01:00 73 05/28/16 00:00 81 05/27/16 23:00 93 Room Air 05/27/16 23:00 71 05/27/16 23:00 98.6 81 19 135/67 92 Arterial Line 05/27/16 22:00 77 05/27/16 21:00 80 05/27/16 20:00 76 05/27/16 19:00 98.5 76 19 127/60 92 05/27/16 19:00 93 Room Air 05/27/16 19:00 71 05/27/16 18:00 71 05/27/16 17:00 78 05/27/16 16:00 71 05/27/16 15:00 98.3 67 19 115/57 98 05/27/16 15:00 96 1.00 05/27/16 15:00 71 05/27/16 14:00 66 05/27/16 13:00 68 05/27/16 12:00 75 05/27/16 12:00 98.1 65 20 110/62 98 05/27/16 11:00 98.6 80 18 131/74 97 05/27/16 11:00 97 Nasal Cannula 05/27/16 11:00 71 Labs: Laboratory Tests Test 05/28/16 03:37 White Blood Count 15.6 TH/MM3 (4.0-11.0) Red Blood Count 3.30 MIL/MM3 (4.50-5.90) Hemoglobin 10.4 GM/DL (13.0-17.0) Hematocrit 30.7 % (39.0-51.0) Mean Corpuscular Volume 93.0 FL (80.0-100.0) Mean Corpuscular Hemoglobin 31.5 PG (27.0-34.0) Mean Corpuscular Hemoglobin 33.9 % Concent (32.0-36.0) Red Cell Distribution Width 13.3 % (11.6-17.2) Platelet Count 158 TH/MM3 (150-450) Mean Platelet Volume 8.8 FL (7.0-11.0) Neutrophils (%) (Auto) 79.8 % (16.0-70.0) Lymphocytes (%) (Auto) 12.0 % (9.0-44.0) Monocytes (%) (Auto) 7.2 % (0.0-8.0) Eosinophils (%) (Auto) 0.8 % (0.0-4.0) Basophils (%) (Auto) 0.2 % (0.0-2.0) Neutrophils # (Auto) 12.4 TH/MM3 (1.8-7.7) Lymphocytes # (Auto) 1.9 TH/MM3 (1.0-4.8) Monocytes # (Auto) 1.1 TH/MM3 (0-0.9) Eosinophils # (Auto) 0.1 TH/MM3 (0-0.4) Basophils # (Auto) 0.0 TH/MM3 (0-0.2) CBC Comment DIFF FINAL Differential Comment Sodium Level 137 MEQ/L (136-145) Potassium Level 4.1 MEQ/L (3.5-5.1) Chloride Level 99 MEQ/L (98-107) Carbon Dioxide Level 31.6 MEQ/L (21.0-32.0) Anion Gap 6 MEQ/L (5-15) Blood Urea Nitrogen 22 MG/DL (7-18) Creatinine 1.59 MG/DL (0.60-1.30) Estimat Glomerular Filtration 44 ML/MIN (>89) Rate Random Glucose 136 MG/DL (74-106) Calcium Level 8.1 MG/DL (8.5-10.1) Magnesium Level 2.2 MG/DL (1.5-2.5) Result Diagram: 05/28/167 05/28/16336 Telemetry: NSR (1) S/P CABG x 3 Plan: ASA, statin BB aggressive pulm toileting nebs, ezpap , wean 02 add advair pain control leave CT in / reeval for removal later today ambulate (2) CAD (coronary artery disease) (3) Unstable angina (4) Diabetes mellitus Plan: increase levemir, resume glimperide, hold on starting metformin with low GFR (5) Hyperlipemia Plan: on statin (6) Hypertension Plan: stable (7) Chronic kidney disease Plan: worsening renal indices, avoid nephro toxins, Consuelo Marina May 28, 2016 11:06
--- NOTE | 2016-05-28 11:13 | HHI.FF ---
Face to Face Verification Diagnosis: (1) Unstable angina (2) Diabetes mellitus (3) Hyperlipemia (4) Hypertension (5) Chronic kidney disease (6) S/P CABG x 3 Physical Therapy Order: Evaluate and Treat Home Health Nursing Order: Signs/symptoms of disease process Diabetic education Wound care and dressing changes Instructions: Heart and Vascular Surgery patients *Special attention to sternal dressing Mandatory frequency Assess and evaluation, 4 days in a row The next week 3X week 2 times a week for 4 weeks 1 time a week for 5 weeks Schedule Heart and Vascular patients for full 60 day certification period Initial visit Review Open Heart Surgery Discharge Instructions (Sternal precautions, Activity, Elastic hose, Incision care, Driving, Incentive spirometry, Smoking, Electra, Work and other) Need Betadine to paint incision Medication reconciliation Importance of follow up care/ check on appointments Make calendar record temperature daily When to call [facility] nurse, review instructions, phone list Incentive Spirometry, demonstration Visit 1- Begin discharge instruction for patient family and/ or caregiver using teach back method- Signs and symptoms of infection Disease characteristics Medicines and side effects Foods and nutrition/ appetite Infection control/ hand washing/ hygiene Visit 2- Continue teaching Discharge instructions- include additional information on smoking cessation , sternal dressing (sternal vac) Visit 3- Continue teaching- Cough and deep breathing, incision monitoring. Choose my plate Visit 4- Continue teaching- Discuss limitations Discuss how they are feeling Discuss progress toward goals Remaining visits- continue teaching and monitoring PREVENA Single Use Negative Wound Therapy System Caregiver Instruction Sheet 1. A Prevena dressing system was applied to the chest incision during surgery , to promote wound healing. It works via a suction device (negative pressure wound therapy) to remove low to moderate levels of exudate (drainage) and infectious materials. We recommend that the device stay in place for up to seven days, from day of surgery. 2. Day of Surgery__05/26/16 Day of Removal ___06/02/16 3. The dressing should only be removed by a health direct care provider. Please arrange removal of device to coincide with Home Health visit and or with Nursing staff at Rehab 4. If skin reddening or irritation of skin occurs, or excessive drainage, please notify the Cardiovascular Surgeons office at [phone]. 5. Light showering is permissible; however the pump should be disconnected and placed in safe location, where it will not get wet. The dressing should not be exposed to direct spray or submerged in water. No bath tub / shower only. Ensure the end of the tubing attached to the dressing is facing down so that water does not enter the top of the tube. 6. To remove Prevena dressing: press purple button to turn off device / remove the suction. Then disconnect the tubing from the pump. The fixation strips should be stretched away from the skin and the dressing lifted at one corner and peeled back until it has been fully removed. 7. After removal, it is ok to shower daily using liquid dial soap and clean wash cloth, rinse and pat dry, and leave incision open to air dry. For any concerns regarding Prevena dressing, and or wounds, please contact Fabienne Lopez, patient navigator at [phone] or notify the Cardiovascular Surgeons office at [phone]. Incentive spirometry Q1 hr x 10, while awake, also use acapella device hourly whole awake Sternal Breast Bone Precautions: NO pushing or pulling, ( pt must use sternal pillow to support chest with all activities and with coughing ( takes up to 3 months breast bone to heal ) All females to wear sternal bra , launder as needed Daily incision care: ok to shower daily, no tub bath. Wash all incisions with liquid dial soap, clean wash cloth to each site, rinse and pat dry. Observe for any signs of infection, such as drainage which is dark yellow, glover, green or foul smelling. Immediately report to the surgeon any drainage from the chest incision, or legs, and for any abnormal drainage from the chest tube sites. Notify surgeon if any temp >101.5 degrees F. When specialty dressing removed/ or if you do not have one, continue to shower daily as above, then rinse and pat incision dry and paint with betadine daily x 5 days. Allow steri strips to fall off if you have any. Avoid lotions, creams, salves, oils, etc. for the first month Please see attached forms for additional instructions regarding post Open Heart specialty wound vacuum dressings. ÓSCAR or Prevena , Dressing to be removed by Nursing staff on __06/02/[address] Loja patients , please obtain CBC, BMP, PA & Lat CXR in 2 weeks, results to Dr. Loja ( prescription will be given) ( ) (Tele: [phone]) , F/U appointment: as per DC instructions: PCP in 2 weeks, CV surgeon 2 weeks, [employer] 3-4 weeks For any questions regarding incisions/ dressing / meds / post op care or above Symptoms, Wednesday 8am-5pm Heart & Vascular Surgery Office ( Dr. Estrella & Dr. Loja), After Hours / Nights (5pm -8am) Weekends and Holidays Please call [facility] ([facility]) Charge Nurse I have seen patient [place] Andres Kauffman on 05/28/16. My clinical findings support the need for the requested home health care services because: Patient has SOB Deconditioned w/ increased weakness I certify that my clinical findings support that this patient is homebound because: Post-op weakness Consuelo Marina May 28, 2016 11:12
[2016-05-28] MEDS: BUDESONIDE-FORMOTEROL 160/4.5 MCG INHALER INH SCH ×2 (13:57→21:44)
[2016-05-28] MEDS: SODIUM CHLOR 0.9% 1000 ML INJ 1,000 ML IV SCH (18:28)
[2016-05-28] MEDS: ATORVASTATIN 40 MG TAB PO SCH (21:43)
[2016-05-28] MEDS: SENNOSIDES 8.6 MG TAB PO SCH (21:43)
[2016-05-29] VITALS (25 sets, daily range): BP systolic 117–132; BP diastolic 59–63; PULSE 65–87; RESP 16–18; TEMP 98.2–99.1; O2SAT 92–98
--- NOTE | 2016-05-29 04:58 | RADRPT ---
EXAM DATE/TIME: 05/29/2016 04:20 [place] COMPARISON: CHEST SINGLE AP, May 27, 2016, 4:24. INDICATIONS : Status post chest tube removal. MEDICAL HISTORY : Hypertension. Arthritis. Carcinoma, prostatic. Nephrolithiasis SURGICAL HISTORY : CABG. Sinus surgery, Lithotripsy, Rotator cuff repair ENCOUNTER: Subsequent ACUITY: 4 - 6 days PAIN SCORE: Non-responsive. LOCATION: chest FINDINGS: Left sided chest tube has been removed with residual bandlike atelectatic change seen. There is cardi omegaly. No consolidation or effusion. I do not see a pneumothorax. Median sternotomy wires and degen erative changes. CONCLUSION: Left basilar atelectasis. Ayan Snell MD on May 29, 2016 at 4:56 Board Certified Radiologist. This report was verified electronically.
[2016-05-29] MEDS: PANTOPRAZOLE SOD 40 MG DELAYED RELEASE TAB PO SCH (06:06)
[2016-05-29] MEDS: AMIODARONE 200 MG TAB PO SCH ×2 (06:07→21:01)
[2016-05-29] MEDS: oxyCODONE/ACETAMINOPHEN 5 MG/325 MG TAB PO PRN ×2 (06:07→21:01)
[2016-05-29] MEDS: INSULIN ASPART SUPPLEMENTAL SCALE SQ SCH ×4 (06:07→21:00)
[2016-05-29 06:17] LABS: BICARBONATE 32.9 MEQ/L (21.0-32.0); POTASSIUM 4.5 MEQ/L (3.5-5.1)
[2016-05-29] MEDS: ASPIRIN 81 MG CHEW TAB PO SCH (08:13)
[2016-05-29] MEDS: METOPROLOL TARTRATE 25 MG TAB PO SCH ×2 (08:13→21:00)
[2016-05-29] MEDS: MULTIVITAMINS/MINERALS THERAPEUTIC TAB PO SCH (08:13)
[2016-05-29] MEDS: POLYETHYLENE GLYCOL 17 GM PKG PO SCH (08:13)
[2016-05-29] MEDS: MAGNESIUM HYDROXIDE SUSP 30 ML CUP PO SCH (08:13)
[2016-05-29] MEDS: GLIMEPIRIDE 1 MG TAB PO SCH (08:13)
[2016-05-29] MEDS: INSULIN DETEMIR 100 UNITS/ML VIAL SQ SCH ×2 (08:14→21:00)
[2016-05-29] MEDS: SODIUM CHLORIDE 0.9% FLUSH 5 ML FLUSH IV FLUSH SCH ×2 (08:14→21:00)
[2016-05-29] MEDS: TAMSULOSIN HCL 0.4 MG CAP PO SCH ×2 (08:14→20:59)
[2016-05-29] MEDS: BUDESONIDE-FORMOTEROL 160/4.5 MCG INHALER INH SCH ×2 (08:15→21:01)
[2016-05-29] MEDS: RESP: ALBUTEROL 2.5 MG/IPRATROPIUM 0.5 MG NEB (SCH) NEB ×2 (08:53→13:48)
[2016-05-29] MEDS: DOCUSATE SODIUM 100 MG CAP PO SCH ×2 (09:55→21:01)
[2016-05-29] MEDS: metFORMIN HCL 500 MG TAB PO SCH ×2 (09:55→18:10)
--- NOTE | 2016-05-29 11:10 | PD.CAR.PN ---
CVT Progress Note CVT: POD #: 3 Subjective/Hospital Course: 65/ male recent chest pain, underwent outpt workup abnormal stress test / underwent cardiac cath per Dr Theodore Diana / multivessel disease / EF 55 % PMH: DDD, DM , chronic back pain , LORETTA, obesity BMI33, asthma surgery: 05/26 CABG x 3, MCKENZIE to LAD - good, SVG to PDA - fair, SVG to OM - good , EVH CPB 72 min, crystalloid 3000cc/ 500 cellsaver, 300 urine , + solumedrol extubated post surgery 05/27 up in chair, on nasal cannula weaning off insulin gtt, levemir started diabetic diet , leave chest tubes in start BB, on ASA, statin , amiodarone 05/28 hold on resuming metformin with GFR 44 no diuresis , check BMP in am eval for chest tube removal later this am will add advair , continue nebs pain control 05/29 doing well , encouraged to ask for pain meds if needed creatinine improving , on room air , BP controlled possible dc later today if pt able to have BM Objective: GENERAL: SKIN: Warm and dry./ prevena to chest , incision intact to leg HEAD: Normocephalic. EYES: No scleral icterus. No injection or drainage. NECK: Supple, trachea midline. No JVD or lymphadenopathy. CARDIOVASCULAR: Regular rate and rhythm without murmurs, gallops, or rubs. RESPIRATORY: Breath sounds equal bilaterally. diminished in bases No accessory muscle use. GASTROINTESTINAL: Abdomen soft, non-tender, nondistended. MUSCULOSKELETAL: No cyanosis, or edema. BACK: Nontender without obvious deformity. No CVA tenderness. Vital Signs Date Time Temp Pulse Resp B/P Pulse Ox O2 Delivery O2 Flow Rate FiO2 05/29/16 06:00 74 05/29/16 05:00 66 05/29/16 04:00 65 05/29/16 03:00 94 Room Air 05/29/16 03:00 75 05/29/16 03:00 98.8 70 18 117/59 94 05/29/16 02:00 76 05/29/16 01:00 74 05/29/16 00:00 72 05/28/16 23:00 72 05/28/16 23:00 99.7 81 18 119/58 95 05/28/16 23:00 95 Room Air 05/28/16 22:00 78 05/28/16 21:00 80 05/28/16 20:18 94 21 05/28/16 20:00 95 Room Air 05/28/16 20:00 78 05/28/16 20:00 99.5 78 18 132/64 95 05/28/16 19:00 81 05/28/16 17:00 78 05/28/16 16:08 73 05/28/16 16:00 100.3 76 19 152/71 95 05/28/16 15:00 75 05/28/16 15:00 95 Room Air 05/28/16 14:00 74 05/28/16 13:00 68 05/28/16 12:57 66 05/28/16 12:00 99.0 81 19 132/63 95 Labs: Laboratory Tests Test 05/29/16 04:59 Sodium Level 137 MEQ/L (136-145) Potassium Level 4.5 MEQ/L (3.5-5.1) Chloride Level 99 MEQ/L (98-107) Carbon Dioxide Level 32.9 MEQ/L (21.0-32.0) Anion Gap 5 MEQ/L (5-15) Blood Urea Nitrogen 23 MG/DL (7-18) Creatinine 1.46 MG/DL (0.60-1.30) Estimat Glomerular Filtration 49 ML/MIN (>89) Rate Random Glucose 128 MG/DL (74-106) Calcium Level 8.5 MG/DL (8.5-10.1) Result Diagram: 05/28/16 0337 05/29/16 0459 Telemetry: NSR (1) S/P CABG x 3 Plan: ASA, statin BB aggressive pulm toileting nebs, ezpap , wean 02 advair pain control ambulate (2) CAD (coronary artery disease) (3) Unstable angina (4) Diabetes mellitus Plan: glimperide, resume metformin (5) Hyperlipemia Plan: on statin (6) Hypertension Plan: stable (7) Chronic kidney disease Plan: worsening renal indices, avoid nephro toxins, Consuelo Marina May 29, 2016 11:10
[2016-05-29] MEDS ORDERED: BISACODYL 10 MG SUPP RECTAL ONE (11:15)
[2016-05-29] MEDS ORDERED: DOCU1CAP39 PO (13:13)
[2016-05-29] MEDS ORDERED: AMIO200T PO (13:13)
[2016-05-29] MEDS ORDERED: Aspirin Chew PO (13:13)
[2016-05-29] MEDS ORDERED: SYMB160A INH (13:13)
[2016-05-29] MEDS ORDERED: METO25TA3 PO (13:13)
--- NOTE | 2016-05-29 13:20 | HHI.DS ---
Discharge Summary Admission Date May 25, 2016 at 16:59 Discharge Date: May 29, 2016 Admitting Diagnosis chest pain, multi vessel CAD (1) Unstable angina Diagnosis: Secondary (2) CAD (coronary artery disease) Diagnosis: Principal (3) Diabetes mellitus Diagnosis: Principal (4) Hyperlipemia Diagnosis: Principal (5) Chronic kidney disease Diagnosis: Principal (6) Hypertension Diagnosis: Principal (7) S/P CABG x 3 Diagnosis: Secondary Procedures 05/26 CABG x 3 MCKENZIE to LAD - good SVG to PDA - fair SVG to OM - good EVH Brief History 65/ male recent chest pain, underwent outpt workup abnormal stress test / underwent cardiac cath per Dr Theodore Diana / multivessel disease / EF 55 % PMH: DDD, DM , chronic back pain , LORETTA, obesity BMI33, asthma surgery: 05/26 CABG x 3, MCKENZIE to LAD - good, SVG to PDA - fair, SVG to OM - good , EVH CPB 72 min, crystalloid 3000cc/ 500 cellsaver, 300 urine , + solumedrol extubated post surgery CBC/BMP: 05/28/16 0337 05/29/16 0459 Significant Findings Laboratory Tests Test 05/27/16 05/28/16 05/29/16 04:44 03:37 04:59 White Blood Count 18.2 TH/MM3 15.6 TH/MM3 (4.0-11.0) (4.0-11.0) Red Blood Count 3.34 MIL/MM3 3.30 MIL/MM3 (4.50-5.90) (4.50-5.90) Hemoglobin 10.4 GM/DL 10.4 GM/DL (13.0-17.0) (13.0-17.0) Hematocrit 30.5 % 30.7 % (39.0-51.0) (39.0-51.0) Blood Urea Nitrogen 19 MG/DL (7-18) 22 MG/DL (7-18) 23 MG/DL (7-18) Creatinine 1.38 MG/DL 1.59 MG/DL 1.46 MG/DL (0.60-1.30) (0.60-1.30) (0.60-1.30) Estimat Glomerular Filtration 52 ML/MIN (>89) 44 ML/MIN (>89) 49 ML/MIN (>89) Rate Random Glucose 116 MG/DL 136 MG/DL 128 MG/DL (74-106) (74-106) (74-106) Calcium Level 8.4 MG/DL 8.1 MG/DL (8.5-10.1) (8.5-10.1) Neutrophils (%) (Auto) 79.8 % (16.0-70.0) Neutrophils # (Auto) 12.4 TH/MM3 (1.8-7.7) Monocytes # (Auto) 1.1 TH/MM3 (0-0.9) Carbon Dioxide Level 32.9 MEQ/L (21.0-32.0) Imaging Last Impressions Chest X-Ray 05/29/16 0600 Signed Impressions: Service Date/Time: Sunday, May 29, 2016 04:20 - CONCLUSION: Left basilar atelectasis. Ayan Snell MD Lower Extremity Ultrasound 05/25/16 0000 Signed Impressions: Service Date/Time: Wednesday, May 25, 2016 11:18 - CONCLUSION: Venous mapping as described above Ryan Hayward MD [facility] Carotid Artery Ultrasound 05/25/16 0000 Signed Impressions: Service Date/Time: Wednesday, May 25, 2016 11:44 - CONCLUSION: Mild atherosclerotic plaquing as described. No evidence of anatomic or physiologic stenosis Jose Juan Whitfield MD PE at Discharge GENERAL: SKIN: Warm and dry./ prevena to chest, incision intact to leg HEAD: Normocephalic. EYES: No scleral icterus. No injection or drainage. NECK: Supple, trachea midline. No JVD or lymphadenopathy. CARDIOVASCULAR: Regular rate and rhythm without murmurs, gallops, or rubs. RESPIRATORY: Breath sounds equal bilaterally. No accessory muscle use slightly diminished in bases. GASTROINTESTINAL: Abdomen soft, non-tender, nondistended. MUSCULOSKELETAL: No cyanosis, or edema. BACK: Nontender without obvious deformity. No CVA tenderness. Hospital Course 05/27 up in chair, on nasal cannula weaning off insulin gtt, levemir started diabetic diet , leave chest tubes in start BB, on ASA, statin , amiodarone 05/28 hold on resuming metformin with GFR 44 no diuresis , check BMP in am eval for chest tube removal later this am will add advair , continue nebs pain control 05/29 doing well , encouraged to ask for pain meds if needed creatinine improving , on room air , BP controlled possible dc later today if pt able to have BM Pt Condition on Discharge: Good Discharge Disposition: Disch w/ Home Health Serv Discharge Instructions DIET: Follow Instructions for: Heart Healthy Diet, Diabetic Diet Activities you can perform: Full Weight Bearing, Shower Only-No Bath Activities to avoid: Lifting/Bending, Strenuous Activity, Driving Additional Activity Instructio: no lifting>8lbs or gallon of milk Follow up Referrals: Cardiology PCP Follow-up Surgical New Orders: BASIC METABOLIC PROF - 2 Weeks CBC NO DIFF - 2 Weeks X-RAY CHEST PA & LAT - 2 Weeks New Medications: Amiodarone (Amiodarone) 200 Mg Tab 200 MG PO Q12HR heart rhythm #28 Ref 0 TAB Budesonide-Formoterol Inh (Symbicort Inh) 160-4.5 Mcg/Act Aero 2 PUFF INH Q12HR wheezing #1 Ref 1 INHALER Docusate Sodium (Dok) 100 Mg Cap 100 MG PO Q12H Constipation #60 Ref 0 CAP Metoprolol Tartrate (Metoprolol Tartrate) 25 Mg Tab 25 MG PO BID Blood Pressure Management #60 Ref 2 TAB ([Aspirin Chew]) 81 MG CHEW 81 MG PO DAILY Blood Clot Prevention #100 Ref 2 TAB.CHEW Continued Medications: Fish Oil-Cholecalciferol ([place]-3 Fish Oil/Vitamin) 1,000-1,000 Mg Cap 1200 MG PO BID Nutritional Supplement Ref 0 CAP Glimepiride (Glimepiride) 1 Mg Tab 1 MG PO DAILY Take with breakfast or first main meal Blood Sugar Management #30 Ref 0 TAB Glucosamine (Glucosamine) 1,000 Mg Cap 1000 MG PO BID Herbal Supplements Ref 0 CAP Ipratropium HFA 12.9 GM Inh (Atrovent HFA 12.9 GM Inh) 17 Mcg/Act Aer 2 PUFF INH Q6HR PRN SHORTNESS OF BREATH #1 Ref 0 INHALER Loratadine (Loratadine) 10 Mg Tab 10 MG PO DAILY PRN ALLERGIES Ref 0 TAB Metformin (Metformin) 1,000 Mg Tab 1000 MG PO BIDPC With meals Blood Sugar Management #60 Ref 0 TAB Multiple Vitamin (Multi Vitamin) 1 Tab Tab 1 TAB PO DAILY TAB Tamsulosin (Tamsulosin) 0.4 Mg Cap 0.4 MG PO BID Manage Prostate Problems #30 Ref 0 CAP Discontinued Medications: Enalapril (Enalapril) 10 Mg Tab 10 MG PO BID #60 Ref 0 TAB Metoprolol Tartrate (Metoprolol Tartrate) 50 Mg Tab 50 MG PO BID #60 Ref 0 TAB Naproxen (Naproxen) 500 Mg Tab 500 MG PO BID #60 Ref 0 TAB Nitroglycerin SL (Nitrostat SL) 0.4 Mg Subl 0.4 MG SL DIRECTED 1 tablet under the tongue as needed for chest pain. Repeat every 5 minutes for a total of 3 DOSES or call 911 if NO relief. PRN CHEST PAIN #100 Ref 0 TAB.SL Consuelo Marina May 29, 2016 13:20
[2016-05-29] MEDS: SODIUM CHLOR 0.9% 1000 ML INJ 1,000 ML IV SCH (14:28)
[2016-05-29] MEDS: SENNOSIDES 8.6 MG TAB PO SCH (21:00)
[2016-05-29] MEDS: ATORVASTATIN 40 MG TAB PO SCH (21:00)
[2016-05-30] VITALS (8 sets, daily range): BP systolic 131–132; BP diastolic 65; PULSE 66–75; RESP 16; TEMP 98.5; O2SAT 96
[2016-05-30] MEDS: oxyCODONE/ACETAMINOPHEN 5 MG/325 MG TAB PO PRN (04:04)
[2016-05-30] MEDS: PANTOPRAZOLE SOD 40 MG DELAYED RELEASE TAB PO SCH (06:00)
[2016-05-30] MEDS: INSULIN ASPART SUPPLEMENTAL SCALE SQ SCH (06:01)
[2016-05-30] MEDS: ASPIRIN 81 MG CHEW TAB PO SCH (09:28)
[2016-05-30] MEDS: metFORMIN HCL 500 MG TAB PO SCH (09:28)
[2016-05-30] MEDS: GLIMEPIRIDE 1 MG TAB PO SCH (09:28)
[2016-05-30] MEDS: METOPROLOL TARTRATE 25 MG TAB PO SCH (09:28)
[2016-05-30] MEDS: DOCUSATE SODIUM 100 MG CAP PO SCH (09:29)
[2016-05-30] MEDS: INSULIN DETEMIR 100 UNITS/ML VIAL SQ SCH (09:29)
[2016-05-30] MEDS: TAMSULOSIN HCL 0.4 MG CAP PO SCH (09:29)
[2016-05-30] MEDS: MULTIVITAMINS/MINERALS THERAPEUTIC TAB PO SCH (09:29)
[2016-05-30] MEDS: SODIUM CHLORIDE 0.9% FLUSH 5 ML FLUSH IV FLUSH SCH (09:32)
[2016-05-30] MEDS: BUDESONIDE-FORMOTEROL 160/4.5 MCG INHALER INH SCH (09:33)
[2016-05-30] MEDS: AMIODARONE 200 MG TAB PO SCH (09:36)
[2016-06-11] MEDS ORDERED: LIPI40TA PO (09:41)
--- NOTE | 2016-06-15 10:37 | RSPPFT ---
DATE OF PROCEDURE: 05/25/16 COMMENTS: Spirometry demonstrates an FEV1 of 2.4 at 69% of predicted, FVC of 3.2 at 75%, FEF 25-75 at 54% of predicted. Post-bronchodilator study was not conducted. Flow volume loops appear unremarkable. IMPRESSION: 1. Mild obstructive airways disease.
== END 2016-05-30 11:05 | disposition home health service (06) | DRG 234 ==
LOC: HDOC 06:20 → HDIC 06:20 → HCPC 16:59 → HDIC 16:59 → HDOC 16:59 → HCIS 05-26 07:42 → HCVR 05-26 12:23 → HCPC 05-27 10:37
PROVIDERS: ADMIT Thoracic Surgery (Cardiothoracic Vascular Surgery); ATTEND Thoracic Surgery (Cardiothoracic Vascular Surgery)
PROC: B2111ZZ Fluoroscopy of Multiple Coronary Arteries using Low Osmolar Contrast (ICD-10-PCS; 2016-05-25)
PROC: 4A023N7 Measurement of Cardiac Sampling and Pressure, Left Heart, Percutaneous Approach (ICD-10-PCS; 2016-05-25)
PROC: 5A1221Z Performance of Cardiac Output, Continuous (ICD-10-PCS; 2016-05-25)
PROC: B2151ZZ Fluoroscopy of Left Heart using Low Osmolar Contrast (ICD-10-PCS; 2016-05-25)
PROC: 06BQ0ZZ Excision of Left Saphenous Vein, Open Approach (ICD-10-PCS; 2016-05-26)
PROC: 021109W Bypass Coronary Artery, Two Arteries from Aorta with Autologous Venous Tissue, Open Approach (ICD-10-PCS; 2016-05-26)
PROC: 02100Z9 Bypass Coronary Artery, One Artery from Left Internal Mammary, Open Approach (ICD-10-PCS; principal; 2016-05-26 07:01)
DX: I25.110 Atherosclerotic heart disease of native coronary artery with unstable angina pectoris (principal); E11.22 Type 2 diabetes mellitus with diabetic chronic kidney disease; I25.82 Chronic total occlusion of coronary artery; R94.39 Abnormal result of other cardiovascular function study; M54.5 Low back pain; G89.29 Other chronic pain; E66.9 Obesity, unspecified; N18.9 Chronic kidney disease, unspecified; G47.33 Obstructive sleep apnea (adult) (pediatric); E78.5 Hyperlipidemia, unspecified; I12.9 Hypertensive chronic kidney disease with stage 1 through stage 4 chronic kidney disease, or unspecified chronic kidney disease; F17.290 Nicotine dependence, other tobacco product, uncomplicated; Z68.33 Body mass index [BMI] 33.0-33.9, adult; Z79.84 Long term (current) use of oral hypoglycemic drugs
CPT/HCPCS: 36430; 71010; 76937; 80048; 81001; 82948; 83036; 83735; 85014; 85025; 85027; 85610; 86850; 86900; 86901; 86920; 87641; 93005; 93318; 93458; 93880; 93970; 93998; 94010; 94150; 94640; 94664; 94667; 94668; C1769; C1893; C9399; J0131; J0171; J0282; J0690; J1200; J1644; J1815; J1940; J2150; J2250; J2370; J2440; J2720; J2930; J3010; J3370; J3475; J3480; J7040; J7050; J7120; P9016; P9047; Q9967